=== PATIENT | male | born 1960 | race Caucasian/White ===

== ENCOUNTER 2017-07-30 15:09 | Emergency (ER) | payer MEDICAID ==
[~2017-07-30] VITALS: Ht 154.9 cm; Wt 59.0 kg
[~2017-07-30 15:09] MED LIST: CYCL5TAB PO; GABA-531 PO; INSHUMSS SUBCUT; LOSA50TA20 PO; METF-516 PO; TIOT18CA3 IH; TRAM50TA3 PO; TYLENOL # 3 PO
[2017-07-30] MEDS ORDERED: KETOROLAC 60MG/2ML VIAL IM ONE (17:15)
[2017-07-30 17:47] VITALS: BP 165/94
== END 2017-07-30 18:26 | disposition home or self-care (01) ==
LOC: ER 15:43
DX: M54.5 Low back pain (principal); M47.897 Other spondylosis, lumbosacral region; M85.88 Other specified disorders of bone density and structure, other site; J44.9 Chronic obstructive pulmonary disease, unspecified; I10 Essential (primary) hypertension; E11.9 Type 2 diabetes mellitus without complications; Z98.1 Arthrodesis status; Z79.4 Long term (current) use of insulin
CPT/HCPCS: 72100; 96372; 99284; J1885